=== PATIENT | female | born 1950 | race African-American/Black ===

== ENCOUNTER 2017-03-20 15:32 | Emergency (ER) | payer MEDICAID ==
[~2017-03-20] VITALS: Ht 162.6 cm; Wt 61.2 kg
[2017-03-20] MEDS ORDERED: GEMFIBROZIL600 MG ORAL (15:38)
[2017-03-20] MEDS ORDERED: BANOPHEN50 MG PO (15:38)
[2017-03-20 16:13] VITALS: BP 132/90
[2017-03-20 16:17] LABS: MEAN CORPUSCULAR HEMOGLOBIN 28.1 PG (27.0-31.0); MEAN CORPUSCULAR HGB CONC 34.6 G/DL (32.0-36.0); MEAN CORPUSCULAR VOLUME 81 FL (80-99); MEAN PLATELET VOLUME 8.3 FL (6.5-10.1); PLATELET COUNT 196 K/UL (150-450); RED BLOOD COUNT 4.56 M/UL (4.20-5.40); RED CELL DISTRIBUTION WIDTH 11.6 % (11.6-14.8); WHITE BLOOD COUNT 5.1 K/UL (4.8-10.8)
--- NOTE | 2017-03-20 16:21 | Diagnostic Imaging Report ---
Indication: Shortness of breath Technique: One view of the chest Comparison: None Findings: Patient is rotated slightly to the right. Lungs and pleural space are clear. Heart size is normal. Aorta is calcified. Inspiration is suboptimal Impression: No acute process
[2017-03-20 16:24] LABS: TROPONIN I < 0.30 ng/mL (<=0.30)
[2017-03-20 16:26] LABS: PROTHROMBIN TIME 10.2 SEC (9.30-11.50)
--- NOTE | 2017-03-20 16:26 | Diagnostic Imaging Report ---
Indications: Altered metal status and dizziness Technique: Spiral acquisitions obtained through the brain. Angled axial and coronal 5 x 5 mm slices were reconstructed. Total dose length product 1358 mGycm. CTDI vol(s) 70 mGy. Dose reduction achieved using automated exposure control Comparison: None Findings: There is mild age-related enlargement of the ventricles and extra-axial CSF spaces. There is mild periventricular deep white matter chronic ischemic change. Normal jacobsen-white differentiation otherwise. No acute hemorrhage or edema. No mass effect or midline shift. Visualized orbits and sinuses are unremarkable. Intact calvarium. There is suggestion of chronic old healed fracture deformity of the right zygomatic arch. Impression: Chronic and age-related changes, as described Negative for acute intracranial bleed or mass effect The CT scanner at [facility] is accredited by the [employer] and the scans are performed using protocols designed to limit radiation exposure to as low as reasonably achievable to attain images of sufficient resolution adequate for diagnostic evaluation.
[2017-03-20 16:28] LABS: ALANINE AMINOTRANSFERASE 5 U/L (3-33); ANION GAP 18 (5-15); ASPARTATE AMINO TRANSFERASE 13 U/L (5-40); CARBON DIOXIDE 24 mEQ/L (20-30); CHLORIDE 81 mEQ/L (98-107); CREATININE 0.7 mg/dL (0.5-0.9); GLOMERULAR FILTRATION RATE > 60 mL/min (>60); HEMOLYSIS 14; LIPASE 41 U/L (< 60); POTASSIUM 4.2 mEQ/L (3.4-4.9); SODIUM 123 mEQ/L (135-145); TOTAL PROTEIN 8.9 g/dL (6.6-8.7)
[2017-03-20 16:38] LABS: CKMB < 1.5 ng/mL (< 3.8)
[2017-03-20 16:59] LABS: APPEARANCE,URINE CLEAR; KETONES,URINE NEGATIVE (NEGATIVE); LEUKOCYTE ESTERASE ,URINE NEGATIVE (NEGATIVE); NITRITE,URINE NEGATIVE (NEGATIVE); PH,URINE 6 (4.5-8.0); PROTEIN,URINE NEGATIVE (NEGATIVE); UROBILINOGEN,URINE NORMAL MG/DL (0.0-1.0)
[2017-03-20 17:06] LABS: BASOPHILS % (MANUAL) 1 % (0-2); EOSINOPHILS % (MANUAL) 3 % (0-3); LYMPHOCYTES % (MANUAL) 57 % (20-45); NEUTROPHILS % (MANUAL) 31 % (45-75); TOTAL CELLS COUNTED 100
[2017-03-20 17:07] LABS: BAND NEUTROPHILS % (MANUAL) 0 % (0-8); PLATELET ESTIMATE ADEQUATE; PLATELET MORPHOLOGY NORMAL
--- NOTE | 2017-03-20 17:12 | Emergency Room Report ---
History of Present Illness General Chief Complaint: Dizziness Source: Patient, Medical Record Present Illness HPI Patient presents with complaints of dizziness and headache Patient reports that she has had increased difficulty eating She is having difficulty swallowing Denies any focal weakness denies any chest pain Patient reports that she has not been able to ambulate Patient had a fairly significant stroke in the past Denies any visual changes Patient also appears to have some decreased mentation, this does limit the history of present illness Allergies: Coded Allergies: No Known Allergies (Unverified , 03/20/17) Patient History Past Medical History: see triage record Pertinent Family History: unable to obtain Reviewed Nursing Documentation: PMH: Agreed, PSxH: Agreed Nursing Documentation-PMH Past Medical History: No History, Except For Hx Hypertension: Yes Hx COPD: Yes History Of Psychiatric Problem: Yes - Anxiety, Schizophrenia, Bipolar disorder Hx Cerebrovascular Accident: Yes - Cerebral infarction Review of Systems All Other Systems: negative except mentioned in HPI Physical Exam Vital Signs Date Time Temp Pulse Resp B/P (MAP) Pulse Ox O2 Delivery O2 Flow Rate FiO2 03/20/17 15:33 98.4 90 12 132/90 99 Room Air Sp02 EP Interpretation: reviewed, normal General Appearance: no apparent distress Head: normocephalic, atraumatic Eyes: bilateral eye PERRL, bilateral eye EOMI ENT: hearing grossly normal, normal pharynx, TMs + canals normal, uvula midline , other - Patient however has some drooping of the right side of the facial area , shows evidence of some slurred speech Neck: full range of motion, supple, no meningismus, no bony tend Respiratory: lungs clear, normal breath sounds, no rhonchi, no respiratory distress, no retraction, no accessory muscle use Cardiovascular #1: normal peripheral pulses, regular rate, rhythm, no edema, no gallop, no JVD, no murmur Gastrointestinal: normal bowel sounds, non tender, soft, no mass, no organomegaly, non-distended, no guarding, no hernia, no pulsatile mass, no rebound Genitourinary: no CVA tenderness Musculoskeletal: other - Patient has equal abstract checker in the upper extremity, no obvious focal deficit from previous CVA, however does appear weak and is unable to bear weight Neurologic: responsive, sensory intact Psychiatric: mood/affect normal Skin: normal color, no rash, warm/dry, palpation normal Lymphatic: normal inspection, no adenopathy Medical Decision Making Diagnostic Impression: Primary Impression: Dizziness Additional Impressions: Weakness Hyponatremia Hypochloremia ER Course Patient is a fairly complex patient with multiple differential to consideration including but not limited to cardiac cardiopulmonary and vascular emergencies Patient's imaging studies do not show any obvious acute pathology Blood work however do show low sodium and low chloride level in line with the patient's decreased oral intake Given the multiple medical problems and presentation patient required admission Secondary to insurance purposes patient was requested for transfer and is stable for that Labs Test 03/20/17 16:00 03/20/17 16:25 White Blood Count 5.1 K/UL (4.8-10.8) Red Blood Count 4.56 M/UL (4.20-5.40) Hemoglobin 12.8 G/DL (12.0-16.0) Hematocrit 37.0 % (37.0-47.0) Mean Corpuscular Volume 81 FL (80-99) Mean Corpuscular Hemoglobin 28.1 PG (27.0-31.0) Mean Corpuscular Hemoglobin Concent 34.6 G/DL (32.0-36.0) Red Cell Distribution Width 11.6 % (11.6-14.8) Platelet Count 196 K/UL (150-450) Mean Platelet Volume 8.3 FL (6.5-10.1) Neutrophils (%) (Auto) % (45.0-75.0) Lymphocytes (%) (Auto) % (20.0-45.0) Monocytes (%) (Auto) % (1.0-10.0) Eosinophils (%) (Auto) % (0.0-3.0) Basophils (%) (Auto) % (0.0-2.0) Differential Total Cells Counted 100 Neutrophils % (Manual) 31 % (45-75) Lymphocytes % (Manual) 57 % (20-45) Monocytes % (Manual) 8 % (1-10) Eosinophils % (Manual) 3 % (0-3) Basophils % (Manual) 1 % (0-2) Band Neutrophils 0 % (0-8) Platelet Estimate Adequate Platelet Morphology Normal Red Blood Cell Morphology Normal Anisocytosis Prothrombin Time 10.2 SEC (9.30-11.50) Prothromb Time International Ratio 1.0 (0.9-1.1) Activated Partial Thromboplast Time 31 SEC (23-33) Sodium Level 123 mEQ/L (135-145) Potassium Level 4.2 mEQ/L (3.4-4.9) Chloride Level 81 mEQ/L (98-107) Carbon Dioxide Level 24 mEQ/L (20-30) Anion Gap 18 (5-15) Blood Urea Nitrogen 12 mg/dL (7-23) Creatinine 0.7 mg/dL (0.5-0.9) Estimat Glomerular Filtration Rate > 60 mL/min (>60) Glucose Level 91 mg/dL (74-106) Calcium Level 10.0 mg/dL (8.6-10.2) Total Bilirubin 0.3 mg/dL (0.0-1.2) Aspartate Amino Transf (AST/SGOT) 13 U/L (5-40) Alanine Aminotransferase (ALT/SGPT) 5 U/L (3-33) Alkaline Phosphatase 52 U/L (35-104) Total Creatine Kinase 39 U/L (26-140) Creatine Kinase MB < 1.5 ng/mL (< 3.8) Creatine Kinase MB Relative Index 3.8 Troponin I < 0.30 ng/mL (<=0.30) Pro-B-Type Natriuretic Peptide 127 pg/mL (0-125) Total Protein 8.9 g/dL (6.6-8.7) Albumin 4.5 g/dL (3.5-5.2) Globulin 4.4 g/dL Albumin/Globulin Ratio 1.0 (1.0-2.7) Lipase 41 U/L (< 60) Urine Color Pale yellow Urine Appearance Clear Urine pH 6 (4.5-8.0) Urine Specific [place] 1.010 (1.005-1.035) Urine Protein Negative (NEGATIVE) Urine Glucose (UA) Negative (NEGATIVE) Urine Ketones Negative (NEGATIVE) Urine Occult Blood Negative (NEGATIVE) Urine Nitrite Negative (NEGATIVE) Urine Bilirubin Negative (NEGATIVE) Urine Urobilinogen Normal MG/DL (0.0-1.0) Urine Leukocyte Esterase Negative (NEGATIVE) Rhythm Strip Diag. Results EP Interpretation: yes Rate: 76 Rhythm: NSR, no PVC's, no ectopy Chest X-Ray Diagnostic Results Chest X-Ray Diagnostic Results : Chest X-Ray Ordered: Yes # of Views/Limited/Complete: 1 View Indication: Chest Pain EP Interpretation: Yes Interpretation: no consolidation, no effusion, no pneumothorax Impression: No acute disease Electronically Signed by: Art Olvera, CT/MRI/US Diagnostic Results CT/MRI/US Diagnostic Results : Impression CT head no acute disease Last Vital Signs Date Time Temp Pulse Resp B/P (MAP) Pulse Ox O2 Delivery O2 Flow Rate FiO2 03/20/17 16:13 98.4 83 17 132/90 99 Room Air Status: improved Disposition: [facility] Condition: Improved ART OLVERA D.O. Mar 20, 2017 17:12
[2017-03-20] MEDS ORDERED: Morphine Sulfate 4mg/ml Inj IVP ONE (17:30)
[2017-03-20 18:02] VITALS: BP 137/85
[2017-03-20 22:00] VITALS: BP 144/80
[2017-03-20 22:47] VITALS: BP 137/85
--- NOTE | 2017-03-21 16:33 | Cardiology Report ---
APPROVED REPORT EKG Measurement Heart [id number] Normal sinus rhythm Nonspecific ST and T wave abnormality Prolonged QT Abnormal ECG
== END 2017-03-20 22:50 | disposition short-term general hospital (02) ==
LOC: EDBD 15:32 → EMR 17:47
DX: R53.1 Weakness (principal); R42 Dizziness and giddiness; E87.1 Hypo-osmolality and hyponatremia; E87.8 Other disorders of electrolyte and fluid balance, not elsewhere classified; I10 Essential (primary) hypertension; J44.9 Chronic obstructive pulmonary disease, unspecified; F41.9 Anxiety disorder, unspecified; F20.9 Schizophrenia, unspecified; F31.9 Bipolar disorder, unspecified; Z86.73 Personal history of transient ischemic attack (TIA), and cerebral infarction without residual deficits
CPT/HCPCS: 36415; 70450; 71010; 80053; 81003; 82550; 82553; 83690; 83880; 84484; 85007; 85025; 85610; 85730; 93005; 96361; 96374; 96375; 99285; J2270; J2405; J7040